=== PATIENT | female | born 1995 | race Caucasian/White ===

== ENCOUNTER → 2021-07-14 | Outpatient (REF) | payer OTHER ==
[2021-07-14 14:03] LABS: GC DNA AMPLIFICATION NEGATIVE (NEGATIVE)
== END ==
LOC: M SFHCCLAY 08:48
PROVIDERS: ATTEND Nurse Practitioner Family
DX: Z12.4 Encounter for screening for malignant neoplasm of cervix (principal); R87.5 Abnormal microbiological findings in specimens from female genital organs; Z11.3 Encounter for screening for infections with a predominantly sexual mode of transmission

== ENCOUNTER → 2022-01-05 | Outpatient (REF) | payer BC | LOC: M SFHCCLAY 09:22 | PROVIDERS: ATTEND Nurse Practitioner Family | DX: N92.6 Irregular menstruation, unspecified (principal); R53.83 Other fatigue; R11.0 Nausea ==

== ENCOUNTER → 2022-08-04 | Outpatient (CLI) | payer BC | LOC: M PLALAB 12:04 | PROVIDERS: ATTEND Advanced Practice Midwife | DX: Z34.81 Encounter for supervision of other normal pregnancy, first trimester (principal); Z3A.00 Weeks of gestation of pregnancy not specified ==

== ENCOUNTER → 2022-11-05 | Outpatient (CLI) | payer BC, MEDICAID | LOC: M LAB 07:37 | PROVIDERS: ATTEND Advanced Practice Midwife | DX: O99.810 Abnormal glucose complicating pregnancy (principal) ==

== ENCOUNTER → 2023-01-19 | Outpatient (REF) | payer BC, MEDICAID | LOC: M SFHCWAGY 10:06 | PROVIDERS: ATTEND Obstetrics & Gynecology | DX: Z3A.36 36 weeks gestation of pregnancy (principal) ==

== ENCOUNTER 2023-02-12 15:23 | Inpatient (IN) | payer BC, MEDICAID ==
[~2023-02-12] VITALS: Ht 157.5 cm; Wt 86.6 kg
[2023-02-12] VITALS (8 sets, daily range): BP systolic 117–163; BP diastolic 55–102
[2023-02-12] MEDS ORDERED: PRENTAB9 PO (17:03)
[2023-02-12] MEDS ORDERED: LEXA1TAB PO (17:03)
[2023-02-12] MEDS ORDERED: OXYTOCIN DRIP 30 UNITS in IV 1 EA IV PRN (17:50)
[2023-02-12 18:20] LABS: HEMATOCRIT 38.7 % (36.0-47.0); HEMOGLOBIN 12.9 g/dl (12.0-15.5); MEAN CORPUSCULAR HEMOGLOBIN 30.6 pg (27.0-33.0); MEAN CORPUSCULAR HGB CONC 33.3 g/dl (32.0-36.5); MEAN CORPUSCULAR VOLUME 91.9 fl (80.0-96.0); PLATELET COUNT, AUTOMATED 285 10^3/uL (150-450); RED BLOOD COUNT 4.21 10^6/uL (4.00-5.40); WHITE BLOOD COUNT 6.7 10^3/uL (4.0-10.0)
[2023-02-12] MEDS: miSOPROStol 50MCG 1/2 TABLET PO SCH ×2 (18:36→22:42)
[2023-02-12] MEDS ORDERED: LR 500 ML IV ONE (23:35)
[2023-02-13] VITALS (49 sets, daily range): BP systolic 112–182; BP diastolic 56–115
[2023-02-13] MEDS: miSOPROStol 50MCG 1/2 TABLET PO SCH (02:52)
[2023-02-13] MEDS ORDERED: LR 500 ML IV PRN (06:25)
[2023-02-13] MEDS ORDERED: FENTANYL/ROPIVACAINE/NACL BAG 100 ML EPIDURAL SCH (06:25)
[2023-02-13] MEDS ORDERED: diphenhydrAMINE 50MG/ML VIAL IV PRN (06:25)
[2023-02-13] MEDS ORDERED: EPIDURAL/PCA KEYS XX PRN (06:25)
[2023-02-13] MEDS ORDERED: ePHEDrine SULFATE 25 MG/5 ML(5MG/ML) SYRINGE IVP PRN (06:25)
[2023-02-13] MEDS ORDERED: NALOXONE INJ 0.4MG/1ML VIAL IV PRN (06:25)
[2023-02-13] MEDS ORDERED: ONDANSETRON 4MG 2ML VIAL IV PRN (06:25)
[2023-02-13] MEDS ORDERED: OXYTOCIN DRIP 30 UNITS in IV 1 EA IV SCH ×2 (07:55→14:55)
[2023-02-13] MEDS: ESCITALOPRAM OXALATE 10 MG TAB (LEXAPRO) PO SCH (08:22)
[2023-02-13] MEDS: LR 1,000 ML IV SCH ×2 (08:23→16:05)
[2023-02-13 14:35] LABS: CORD GAS ABE A -2.6; CORD GAS ABE V -2.4; CORD GAS HCO3 A 23.4 MEQ/L; CORD GAS HCO3 V 21.9 MEQ/L; CORD GAS O2 SAT A 49.8 %; CORD GAS O2 SAT V 66.3 %; CORD GAS PCO2 A 44.7 mmHg; CORD GAS PCO2 V 36.9 mmHg; CORD GAS PH A 7.336 UNITS; CORD GAS PH V 7.392 UNITS; CORD GAS PO2 A 21.1 mmHg; CORD GAS PO2 V 26.8 mmHg; CORD GAS SBC V 21.7 MEQ/L; CORD GAS TCO2 A 24.7 MEQ/L; CORD GAS TCO2 V 23.1 MEQ/L
[2023-02-13] MEDS ORDERED: MOM 30ML SUSPENSION UDC PO PRN (14:55)
[2023-02-13] MEDS ORDERED: DIBUCAINE 1% OINTMENT 30GM TOP PRN (14:55)
[2023-02-13] MEDS ORDERED: ACETAMINOPHEN 500 MG TAB PO PRN (14:55)
[2023-02-13] MEDS ORDERED: METHYLERGONOVINE MALEATE 0.2 MG TAB PO PRN (14:55)
[2023-02-13] MEDS ORDERED: IBUPROFEN 600MG TAB PO PRN (14:55)
[2023-02-13] MEDS ORDERED: ANUSOL HC CREAM 30GM TOP PRN (14:55)
[2023-02-13] MEDS ORDERED: RHOGAM 300MCG (1500IU) INJ IM SCH (14:55)
[2023-02-13] MEDS ORDERED: DOCUSATE SODIUM 100MG CAPSULE PO PRN (14:55)
[2023-02-13] MEDS ORDERED: ACETAMINOPHEN TAB 650MG DOSE (2X325MG) PO PRN (14:55)
[2023-02-13] MEDS: IBUPROFEN 800 MG TAB PO PRN (15:16)
[2023-02-13] MEDS: PRENATAL VITAMINS CHEWABLE TABLET PO SCH (15:16)
[2023-02-14] MEDS: LR 1,000 ML IV SCH ×3 (00:05→16:05)
[2023-02-14 06:00] VITALS: BP 122/73
[2023-02-14] MEDS: ESCITALOPRAM OXALATE 10 MG TAB (LEXAPRO) PO SCH (09:00)
[2023-02-14] MEDS: PRENATAL VITAMINS CHEWABLE TABLET PO SCH (09:38)
[2023-02-14 18:00] VITALS: BP 123/79
[2023-02-15 06:00] VITALS: BP 133/84
[2023-02-15] MEDS: ESCITALOPRAM OXALATE 10 MG TAB (LEXAPRO) PO SCH (08:13)
[2023-02-15] MEDS: PRENATAL VITAMINS CHEWABLE TABLET PO SCH (08:13)
[2023-02-15] MEDS: IBUPROFEN 800 MG TAB PO PRN (08:28)
[2023-02-15] MEDS ORDERED: MEASLES,MUMPS,RUBELLA VACCINE INJ (MMR-II) SC.IMMUN ONE (09:00)
[2023-02-15] MEDS ORDERED: ACET-683 PO (11:48)
== END 2023-02-15 14:00 | disposition home or self-care (01) | DRG 560 ==
LOC: M LDI 16:42 → M OBS 02-13 17:10
PROVIDERS: ADMIT Obstetrics & Gynecology; ATTEND Obstetrics & Gynecology
PROC: 10E0XZZ Delivery of Products of Conception, External Approach (ICD-10-PCS; principal; 2023-02-13)
PROC: 0HQ9XZZ Repair Perineum Skin, External Approach (ICD-10-PCS; 2023-02-13)
DX: O24.429 Gestational diabetes mellitus in childbirth, unspecified control (principal); O77.0 Labor and delivery complicated by meconium in amniotic fluid; Z37.0 Single live birth; Z3A.39 39 weeks gestation of pregnancy; O69.1XX0 Labor and delivery complicated by cord around neck, with compression, not applicable or unspecified; O70.0 First degree perineal laceration during delivery

== ENCOUNTER → 2023-03-26 | Outpatient (CLI) | payer BC, MEDICAID ==
[~2023-03-26] MED LIST: ACET-683 PO; AMOX875T2 PO; LEXA1TAB PO; LORY1TAB2 PO; PRENTAB9 PO
== END ==
LOC: M PLARAD 10:03
PROVIDERS: ATTEND Nurse Practitioner Family
DX: R22.32 Localized swelling, mass and lump, left upper limb (principal); N63.32 Unspecified lump in axillary tail of the left breast

== ENCOUNTER 2023-03-30 10:29 | Day surgery (SDC) | payer BC, MEDICAID ==
[~2023-03-30] VITALS: Ht 157.5 cm; Wt 72.1 kg
[~2023-03-30 10:29] MED LIST changes: -AMOX875T2 PO; -LORY1TAB2 PO
[2023-03-30 11:27] LABS: BASO % 0.2 % (0.0-1.0); EOS % 0.1 % (0.0-3.0); HEMATOCRIT 42.1 % (36.0-47.0); HEMOGLOBIN 14.1 g/dl (12.0-15.5); MEAN CORPUSCULAR HEMOGLOBIN 30.1 pg (27.0-33.0); MEAN CORPUSCULAR HGB CONC 33.5 g/dl (32.0-36.5); MONO # 0.6 10^3/uL (0.0-0.8); MONO % 4.9 % (2.0-8.0); NEUTROPHILS # 10.8 10^3/uL (1.5-8.5); NEUTROPHILS % 86.1 % (36.0-66.0); PLATELET COUNT, AUTOMATED 340 10^3/uL (150-450); RED BLOOD COUNT 4.68 10^6/uL (4.00-5.40); WHITE BLOOD COUNT 12.6 10^3/uL (4.0-10.0)
[2023-03-30 11:58] LABS: LIPASE 27 U/L (12-53)
[2023-03-30 12:00] LABS: ALBUMIN 3.9 G/DL (3.2-5.2); ALKALINE PHOSPHATASE 90 U/L (46-116); ALT/SGPT 182 U/L (7.0-40); AST/SGOT 63 U/L (<34); BILIRUBIN,DIRECT 0.2 MG/DL (<0.4); BILIRUBIN,TOTAL 0.9 MG/DL (0.3-1.2); BLOOD UREA NITROGEN 11 MG/DL (9-23); CALCIUM LEVEL 9.1 MG/DL (8.5-10.1); CARBON DIOXIDE LEVEL 25 MMOL/L (20-31); CHLORIDE LEVEL 102 MMOL/L (98-107); CREATININE FOR GFR 0.57 MG/DL (0.55-1.30); GLOMERULAR FILTRATION RATE > 60.0 (>60); GLUCOSE, FASTING 97 MG/DL (60-100); POTASSIUM SERUM 4.3 MMOL/L (3.5-5.1); SODIUM LEVEL 137 MMOL/L (136-145); TOTAL PROTEIN 7.3 G/DL (5.7-8.2)
[2023-03-30] MEDS ORDERED: ONDANSETRON 4MG 2ML VIAL IV ONE (12:40)
[2023-03-30] MEDS ORDERED: NS 1,000 ML IV ONE (12:40)
[2023-03-30] MEDS ORDERED: MORPHINE 4 MG/ML 1ML VIAL IV ONE (12:40)
[2023-03-30 12:57] LABS: HCG, SERUM QUALITATIVE NEGATIVE (NEGATIVE)
[2023-03-30] MEDS ORDERED: ISOVUE-370 76% 100ML VIAL As Ordered ONE (13:02)
[2023-03-30] MEDS ORDERED: PIPERACILLIN/TAZOBACTAM SOD 3.375 GM in D5W MINI-BAG PLUS 50 ML IV ONE (13:45)
[2023-03-30 13:53] LABS: HCG, SERUM QUANTITATIVE < 2.6 MIU/ML (<4.2)
[2023-03-30] MEDS ORDERED: LORY1TAB2 PO (13:53)
[2023-03-30] MEDS ORDERED: HOME MED LIST COMPLETE! XX SCH (13:55)
[2023-03-30 14:53] LABS: RSV AMPLIFICATION NEGATIVE (NEGATIVE)
[2023-03-30] MEDS ORDERED: ROCURONIUM BROMIDE 50MG/5ML VIAL As Ordered ONE (18:57)
[2023-03-30] MEDS ORDERED: fentaNYL 100 MCG/2 ML INJECTION As Ordered ONE (18:58)
[2023-03-30] MEDS ORDERED: propofoL 200 MG/20 ML VIAL As Ordered ONE (18:58)
[2023-03-30] MEDS ORDERED: LIDOCAINE 2% 100MG/5ML SDV (FOR ANES.) As Ordered ONE (18:58)
[2023-03-30] MEDS ORDERED: MIDAZOLAM INJ 2MG/2ML VIAL As Ordered ONE (18:58)
[2023-03-30] MEDS ORDERED: BUPIVACAINE/EPIN 0.25% 30ML VIAL As Ordered ONE (19:06)
[2023-03-30] MEDS ORDERED: ONDANSETRON 4MG 2ML VIAL As Ordered ONE (19:25)
[2023-03-30] MEDS ORDERED: METOCLOPRAMIDE INJ 10MG/2ML VIAL As Ordered ONE (19:25)
[2023-03-30] MEDS ORDERED: ACETAMINOPHEN 1000MG 100ML IV BAG As Ordered ONE (19:25)
[2023-03-30] MEDS ORDERED: KETOROLAC 60MG 2ML VIAL As Ordered ONE (19:25)
[2023-03-30] MEDS ORDERED: HYDROmorphone HCL 2MG/ML 1ML VIAL As Ordered ONE (19:26)
[2023-03-30] MEDS ORDERED: ZOSYN 3.375GM VIAL As Ordered ONE (19:30)
[2023-03-30] MEDS ORDERED: SUGAMMADEX SODIUM 500 MG/5 ML VIAL (BRIDION) As Ordered ONE (19:43)
[2023-03-30] MEDS ORDERED: NORCO, ANEXSIA 5/325MG TABLET (HYDROcodone/ACETAMINOPHEN) PO PRN (20:00)
[2023-03-30] MEDS ORDERED: ONDANSETRON 4MG 2ML VIAL IV PRN (20:00)
[2023-03-30] MEDS ORDERED: KETOROLAC 30 MG/ML 1ML VIAL IV PRN (20:00)
[2023-03-30 20:45] VITALS: BP 142/87
[2023-03-30] MEDS ORDERED: SENOKOT S TAB PO SCH (21:00)
[2023-03-30 21:15] VITALS: BP 133/74
[2023-03-30] MEDS: PIPERACILLIN/TAZOBACTAM SOD 3.375 GM in D5W MINI-BAG PLUS 50 ML IV SCH (21:21)
[2023-03-30] MEDS: NS 1,000 ML IV SCH (21:21)
[2023-03-30 21:45] VITALS: BP 120/69
[2023-03-30 22:45] VITALS: BP 112/58
[2023-03-30 23:45] VITALS: BP 115/58
[2023-03-31] MEDS: ACETAMINOPHEN TAB 650MG DOSE (2X325MG) PO PRN ×2 (00:01→05:53)
[2023-03-31 00:45] VITALS: BP 110/60
[2023-03-31 01:45] VITALS: BP 107/61
[2023-03-31] MEDS: PIPERACILLIN/TAZOBACTAM SOD 3.375 GM in D5W MINI-BAG PLUS 50 ML IV SCH ×2 (02:09→07:50)
[2023-03-31 05:45] VITALS: BP 119/59
[2023-03-31] MEDS: NS 1,000 ML IV SCH (05:52)
[2023-03-31 06:00] VITALS: BP 119/59
[2023-03-31 06:47] LABS: HEMATOCRIT 36.5 % (36.0-47.0); HEMOGLOBIN 12.3 g/dl (12.0-15.5); MEAN CORPUSCULAR HEMOGLOBIN 30.5 pg (27.0-33.0); MEAN CORPUSCULAR HGB CONC 33.7 g/dl (32.0-36.5); MEAN CORPUSCULAR VOLUME 90.6 fl (80.0-96.0); PLATELET COUNT, AUTOMATED 290 10^3/uL (150-450); RED BLOOD COUNT 4.03 10^6/uL (4.00-5.40)
[2023-03-31] MEDS ORDERED: AMOX875T2 PO (06:51)
[2023-03-31 08:00] VITALS: BP 119/71
[2023-03-31] MEDS ORDERED: PRENATAL VITAMINS CHEWABLE TABLET PO SCH (09:00)
[2023-03-31] MEDS ORDERED: ESCITALOPRAM OXALATE 10 MG TAB (LEXAPRO) PO SCH (09:00)
== END 2023-03-31 10:30 | disposition home or self-care (01) ==
LOC: M ED 10:29 → M SDC 19:57 → M PED 20:43 → M SDC 03-31 10:30
PROVIDERS: ATTEND Surgery
DX: K35.890 Other acute appendicitis without perforation or gangrene (principal); F41.9 Anxiety disorder, unspecified; F32.A Depression, unspecified; Z79.899 Other long term (current) drug therapy
CPT/HCPCS: 36415; 44970; 74177; 80048; 80076; 83690; 84702; 84703; 85025; 85027; 87631; 88304; 96361; 96365; 96366; 96375; 99284; J0131; J1100; J1170; J1885; J2250; J2405; J2543; J2765; J3010; Q9967; S0020

== ENCOUNTER 2023-07-10 21:24 | Emergency (ER) | payer BC, MEDICAID ==
[~2023-07-10] VITALS: Ht 157.5 cm; Wt 73.3 kg
[~2023-07-10 21:24] MED LIST changes: +AMOX875T2 PO; +LORY1TAB2 PO
[2023-07-10 21:55] LABS: HEMATOCRIT 39.2 % (36.0-47.0); HEMOGLOBIN 13.3 g/dl (12.0-15.5); MEAN CORPUSCULAR HEMOGLOBIN 30.4 pg (27.0-33.0); MEAN CORPUSCULAR HGB CONC 33.9 g/dl (32.0-36.5); MEAN CORPUSCULAR VOLUME 89.7 fl (80.0-96.0); PLATELET COUNT, AUTOMATED 341 10^3/uL (150-450); RED BLOOD COUNT 4.37 10^6/uL (4.00-5.40); WHITE BLOOD COUNT 8.3 10^3/uL (4.0-10.0)
[2023-07-10 22:26] LABS: BLOOD UREA NITROGEN 11 MG/DL (9-23); CALCIUM LEVEL 8.9 MG/DL (8.5-10.1); CARBON DIOXIDE LEVEL 26 MMOL/L (20-31); CHLORIDE LEVEL 106 MMOL/L (98-107); CREATININE FOR GFR 0.62 MG/DL (0.55-1.30); GLOMERULAR FILTRATION RATE > 60.0 (>60); GLUCOSE, FASTING 108 MG/DL (60-100); POTASSIUM SERUM 4.1 MMOL/L (3.5-5.1); SODIUM LEVEL 140 MMOL/L (136-145)
[2023-07-11 01:05] VITALS: BP 116/65; TEMP 99.3; O2SAT 96
== END 2023-07-11 01:44 | disposition home or self-care (01) ==
LOC: M ED 21:24
DX: N99.820 Postprocedural hemorrhage of a genitourinary system organ or structure following a genitourinary system procedure (principal); Z98.51 Tubal ligation status; F41.9 Anxiety disorder, unspecified; F10.10 Alcohol abuse, uncomplicated; Z79.2 Long term (current) use of antibiotics; Z79.899 Other long term (current) drug therapy